=== PATIENT | female | born 1940 ===

== ENCOUNTER 2017-12-03 08:23 | Outpatient (CLI) | payer OTHER ==
[~2017-12-03 08:23] MED LIST: CAPOTEN25 MG; HUMALOG100 U/ML; PRILOSEC20 MG; PROTONIX20 MG; SYNTHROID88 MCG
== END 2017-12-03 08:26 | disposition home or self-care (01) ==
LOC: RAD 08:23
DX: J44.1 Chronic obstructive pulmonary disease with (acute) exacerbation (principal)